=== PATIENT | male | born 1960 | race Caucasian/White ===

== ENCOUNTER 2021-12-08 22:44 | Inpatient (IN) | payer MEDICARE, OTHER ==
[2021-12-08] MEDS ORDERED: NITROGLYCERIN SL TABS 0.4 MG TAB SUBLINGUAL PRN (22:50)
[2021-12-08] MEDS ORDERED: HEPARIN SODIUM 1,000 UN/ML (10ML VL) ONE (22:53)
--- NOTE | 2021-12-08 22:54 | ED ---
Chest Pain HPI - General Stated Complaint: Chest Pain Time Seen by Provider: 12/08/21 22:47 Source: RN notes reviewed, old records reviewed Mode of arrival: EMS Limitations: no limitations - History of Present Illness Initial Comments: This is a 61-year-old male DF for evaluation weeks of this patient in transfer from outside facility for ST elevated [place] and need for cardiology evaluation. Patient presents today for evaluation of persistent chest pain, significant shortness of breath mild diaphoresis. No recent travel history sick contacts. No other complaints MD Complaint: chest pain -: hour(s) Onset: during rest, during exertion Pain Location: left chest Pain Radiation: back Severity: moderate Severity scale (1-10): 7 Quality: tightness, heaviness Consistency: constant Improves With: nothing Worsens With: nothing Anginal Symptoms: diaphoresis, sense of impending doom Other Symptoms: palpitations Treatments Prior to Arrival: aspirin, nitroglycerin, oxygen Review of Systems ROS Statement: Those systems with pertinent positive or pertinent negative responses have been documented in the HPI. ROS Other: All systems not noted in ROS Statement are negative. General Exam General appearance: alert, in no apparent distress, anxious Head exam: Present: atraumatic, normocephalic, normal inspection Eye exam: Present: normal appearance, PERRL, EOMI. Absent: scleral icterus, conjunctival injection, periorbital swelling ENT exam: Present: normal exam, mucous membranes moist Neck exam: Present: normal inspection. Absent: tenderness, meningismus, lymphadenopathy Respiratory exam: Present: normal lung sounds bilaterally. Absent: respiratory distress, wheezes, rales, rhonchi, stridor Cardiovascular Exam: Present: regular rate, normal rhythm, normal heart sounds. Absent: systolic murmur, diastolic murmur, rubs, gallop, clicks GI/Abdominal exam: Present: soft, normal bowel sounds. Absent: distended, tenderness, guarding, rebound, rigid Extremities exam: Present: normal inspection, full ROM, normal capillary refill. Absent: tenderness, pedal edema, joint swelling, calf tenderness Back exam: Present: normal inspection Neurological exam: Present: alert, oriented X3, CN II-XII intact Psychiatric exam: Present: normal affect, normal mood Skin exam: Present: warm, dry, intact, normal color. Absent: rash Course - Reevaluation(s) Reevaluation #1: 12/08/21 22:53 Medical record is reviewed Reevaluation #2: 12/08/21 22:53 Transferring paperwork is reviewed Reevaluation #3: 12/08/21 22:53 Patient does still of chest pain Chest Pain MDM - MDM 61 male DF for evaluation accepted in transfer for ST elevated [place]. Patient transferred to chemical laboratory technician upon arrival in emergency department Disposition Clinical Impression: STEMI (ST elevation myocardial infarction) Disposition: ADMITTED IP TO THIS HOSP Condition: Serious Is patient prescribed a controlled substance at d/c from ED?: No Referrals: None,Stated [Primary Care Provider] - 1-2 days Time of Disposition: 23:00
[2021-12-08] MEDS ORDERED: HEPARIN SOD,PORK IN 0.45% NACL 25,000 UNIT in 0.45% NACL 1 250ML.BAG IV SCH (23:00)
[2021-12-08] MEDS ORDERED: IV FLUID CONTINUATION 1,000 ML IV ONE (23:00)
[2021-12-08] MEDS ORDERED: LIDOCAINE 1% INJ 10MG/ML (30 ML VIAL-PF) SQ ONE ×2 (23:05→23:10)
[2021-12-08] MEDS ORDERED: VERAPAMIL SYRINGE (5 MG/10 ML) INTRAARTER ONE ×2 (23:07→23:10)
[2021-12-08] MEDS ORDERED: fentaNYL (PF) 50 MCG/ML 2 ML AMP ONE (23:08)
[2021-12-08] MEDS: MIDAZOLAM 2 MG/2 ML VIAL IV ONE ×2 (23:11→23:13)
[2021-12-08] MEDS ORDERED: fentaNYL (PF) 50 MCG/ML 2 ML AMP IV ONE (23:12)
[2021-12-08] MEDS: HEPARIN SODIUM 1,000 UN/ML (10ML VL) IV ONE ×2 (23:12→23:49)
[2021-12-08] MEDS ORDERED: PRASUGREL 10 MG TAB ONE (23:33)
[2021-12-08] MEDS ORDERED: PRASUGREL 10 MG TAB PO ONE (23:33)
[2021-12-08] MEDS ORDERED: HYDROmorphone 0.5 MG/0.5 ML SYRINGE IVP ONE (23:41)
[2021-12-08] MEDS ORDERED: FUROSEMIDE 10 MG/ML 4 ML VIAL IV ONE (23:43)
[2021-12-08] MEDS ORDERED: IOPAMIDOL-370 100ML BTL INJ ONE ×2 (23:43→23:50)
[2021-12-08] MEDS ORDERED: FUROSEMIDE 10 MG/ML 4 ML VIAL ONE (23:43)
[2021-12-08] MEDS ORDERED: SODIUM CHLORIDE 0.9% 1,000 ML in EMPTY BAG 1 BAG IV SCH (23:45)
[2021-12-08] MEDS ORDERED: ATROPINE SULFATE 0.1 MG/ML 10ML SYRINGE IV PRN (23:55)
[2021-12-08] MEDS ORDERED: MAG HYDROX/AL HYDROX/SIMETH 30 ML CUP PO PRN (23:55)
[2021-12-08] MEDS ORDERED: RX INFO: IV CONTRAST WAS GIVEN 1 EACH MISC MISCELLANE PRN (23:55)
[2021-12-08] MEDS ORDERED: ZOLPIDEM 5 MG TAB PO PRN (23:55)
--- NOTE | 2021-12-09 00:05 | P.PCN ---
Date of Procedure: 12/08/21 Operative Findings: CARDIAC CATHETERIZATION AND PERCUTANEOUS CORONARY INTERVENTION PERFORMING PHYSICIAN: Terrance Kurtz MD, VI PROCEDURE PERFORMED: 1. Selective right and left coronary angiogram 2. Left heart catheterization 3. Successful stenting of proximal LAD using 3.5 x 15 mm Xience SHIVAM which with an excellent angiographic results INDICATION: This is a 61-year-old gentleman with CAD and prior stenting of the LCx, was performed at [facility], currently doesn't follow with any industrial automation engineer, presented to [facility] complaining of chest discomfort. He continues to have ongoing chest discomfort. The EKG showed wide complex QRS. In the light of ongoing chest discomfort, a heart catheterization was advised COMPLICATION: None APPROACH: Right radial artery LEVEL OF SEDATION: Moderate with the sedation time off 47 minutes PROCEDURE DESCRIPTION: After obtaining an informed consent the patient was brought to the cardiac golf course laborer. The right radial artery was cannulated using micropuncture technique, the micropuncture wire passed easily then I placed a 6-[place] sheath. I gave the patient 2 mg of verapamil and her arterial and 8000 use of heparin intravenous. Subsequently selective right and left coronary angiogram performed using JR4 and JL 4 catheters. After that left heart catheterization was performed using 6- [place] pigtail catheter. After that I did intervene on the LAD. The procedure was completed without any complication SELECTIVE CORONARY ANGIOGRAM: The right coronary artery: Large-caliber vessel and a dominant vessel. The RCA has mild disease in the proximal portion. In the mid and distal portion appears to be angiographically normal and bifurcates into PDA and PLV branches both appeared to be angiographically normal Left main: Is not exists. The LAD and the circumflex has a separate ostium from the aorta The left circumflex: Large-caliber vessel. The proximal LCx gives rise into a large OM branch which appears to be stented and the stent is patent. The left anterior descending artery: The proximal LAD by the bifurcation of the large diagonal branch has a lesion appeared to be calcified in the range of 80%. The mid LAD has mild disease only. The LAD distally appears to be angiographically normal HEMODYNAMICS: The LVEDP was 16 mmHg was no significant gradient across aortic valve PCI OF THE LAD: Anticoagulation was initiated using heparin. Continuous ECG monitoring was performed. Subsequently I did engage the LAD using a JL 3.5 guiding catheter. I did where the LAD using a run-through wire. PTCA ballooning was performed using 3.0 x 12 mm balloon. After that I deployed 3.5 x 15 mm stent where the stent was positioned under fluoroscopy guidance and deployed under its nominal pressure. Postdilatation was performed using 3.5 mm NC balloon which was inflated under 20 alia for 20 seconds. The following angiogram showed good angiographic results and the procedure was completed without any complication CONCLUSION: #1 critical disease involving the proximal LAD. Successful stenting of the LAD was performed with a good angiographic results #2 patent stent in the first obtuse marginal branch of the left circumflex #3 mild disease involving the right coronary artery POSTPROCEDURE MANAGEMENT: #1 dual antiplatelet therapy using aspirin and Effient for 12 month #2 aggressive cholesterol control #3 follow-up with the patient
--- NOTE | 2021-12-09 00:09 | P.CRDCN ---
History of Present Illness Consult date: 12/09/21 Chief complaint: Chest discomfort History of present illness: This is a 61-year-old gentleman with CAD and prior stenting of the left circumflex was performed at [facility], the patient follows with a cultural anthropology professor over there but has not seen him in years, diabetes, hypertension, and dyslipidemia. This patient presented to the emergency department at [facility] complaining of chest discomfort. He was in his usual state of health earlier today when he started experiencing discomfort in the middle of the chest, as a pressure on the chest, with radiation to the neck as well as to the jaw. The chest discomfort was associated with shortness of breath as well as with sweating. No dizziness or lightheadedness and no presyncope or syncope. No feeling of heart racing or fluttering. [facility] and showed sinus rhythm with sinus tachycardia and wide QRS does not seems to be typical for any LBBB be or RBBB. Because the patient continues to be having ongoing chest discomfort an emergent heart catheterization was advised. Subsequently the patient was transferred to [facility] where he underwent an emergent heart catheterization and was found to have critical disease involving the proximal LAD by the bifurcation of the large diagonal branch. He underwent successful stenting of the LAD with a good angiographic results. The left sided filling pressure was slightly elevated at 16 mmHg. The procedure was performed from the right radial approach Medications and Allergies Allergies Allergy/AdvReac Type Severity Reaction Status Date / Time morphine AdvReac Unknown Verified 12/08/21 23:14 Physical Exam Vitals: Intake and Output 12/08/21 12/08/21 12/09/21 14:59 22:59 06:59 Intake Total 400 Balance 400 Intake: IV 400 Other: Weight 102.965 kg - Constitutional General appearance: no acute distress - Respiratory Respiratory: bilateral: diminished - Cardiovascular Rhythm: regular Heart sounds: normal: S1, S2 Abnormal Heart Sounds: systolic murmur Results Cardiac Enzymes 12/08/21 Range/Units 22:50 Troponin I 0.017 (0.000-0.034) ng/mL Current Medications Generic Name Dose Route Start Last Admin Trade Name Freq PRN Reason Stop Dose Admin Al Hydroxide/Mg Hydroxide 30 ml 12/08/21 23:55 Mag Hydrox/Al Hydrox/Simeth 30 Ml Cup PO Q4HR PRN Heartburn Aspirin 325 mg 12/09/21 09:00 Aspirin 325 Mg Tab PO DAILY [facility] Atorvastatin Calcium 80 mg 12/09/21 09:00 Atorvastatin 80 Mg Tab PO DAILY [facility] Atropine Sulfate 0.5 mg 12/08/21 23:55 Atropine Sulfate 0.1 Mg/Ml 10ml Syringe IV ONCE PRN Symptomatic Bradycardia Heparin Sodium/Sodium Chloride 250 mls @ 9.998 mls/hr 12/08/21 23:00 25,000 unit/ Sodium Chloride IV .Q24H [facility] Protocol 9.71 UNITS/KG/HR Sodium Chloride 1,000 ml/ IV 1,000 mls @ 75 mls/hr 12/08/21 23:45 Solution IV 12/09/21 04:46 .[id number] [facility] Metoprolol Tartrate 25 mg 12/09/21 09:00 Metoprolol Tartrate 25 Mg Tab PO BID [facility] Miscellaneous Information 1 each 12/08/21 23:55 Rx Info: Iv Contrast Was Given 1 Each Mis MISCELLANE 12/10/21 23:55 DAILY PRN Per Protocol Morphine Sulfate 4 mg 12/08/21 22:50 Morphine Sulfate 4 Mg/Ml Syringe IV Q4HR PRN Chest Pain Nitroglycerin 0.4 mg 12/08/21 23:55 Nitroglycerin Sl Tabs 0.4 Mg Tab SUBLINGUAL Q5M PRN Chest Pain Prasugrel 10 mg 12/09/21 09:00 Prasugrel 10 Mg Tab PO DAILY [facility] Protocol Zolpidem Tartrate 5 mg 12/08/21 23:55 Zolpidem 5 Mg Tab PO HS PRN Insomnia Intake and Output 12/08/21 12/08/21 12/09/21 14:59 22:59 06:59 Intake Total 400 Balance 400 Intake: IV 400 Other: Weight 102.965 kg Patient Weight 12/09/21 06:59 Weight 102.965 kg Assessment and Plan Assessment: Assessment #1 unstable angina #2 severe CAD and status post PCI of the LAD #3 hypertension #4 dyslipidemia #5 diabetes Plan Continue the current medical regimen Anti-ischemic medication High intensity statin An echo. He does have a systolic murmur on examination and also to evaluate for any wall motion abnormalities Follow-up with the patient
[2021-12-09 00:15] LABS: Glucose,Whole Blood 408 mg/dL (70-110)
[2021-12-09 00:40] LABS: ALT 15 U/L (4-49); AST 23 U/L (17-59); African American GFR (CKD) >90 (>60 ml/min/1.73 sqM); Albumin 3.5 g/dL (3.5-5.0); Alkaline Phosphatase 99 U/L (38-126); Anion Gap 12 mmol/L; Blood Urea Nitrogen 20 mg/dL (9-20); Calcium 8.4 mg/dL (8.4-10.2); Carbon Dioxide 19 mmol/L (22-30); Chloride 100 mmol/L (98-107); Glucose 391 mg/dL (74-99); Non-African American GFR(CKD) >90 (>60 ml/min/1.73 sqM); Sodium 131 mmol/L (137-145); Total Bilirubin 0.6 mg/dL (0.2-1.3); Total Protein 5.5 g/dL (6.3-8.2)
[2021-12-09] MEDS: MORPHINE SULFATE 4 MG/ML SYRINGE IV PRN ×2 (00:59→20:08)
[2021-12-09 06:34] LABS: Glucose,Whole Blood 353 mg/dL (70-110)
[2021-12-09 07:50] LABS: Basophils % (A) 0 %; Eosinophils # (A) 0.2 k/uL (0-0.7); Eosinophils % (A) 3 %; HCT 40.5 % (39.0-53.0); HGB 13.7 gm/dL (13.0-17.5); Lymphocytes # (A) 2.3 k/uL (1.0-4.8); Lymphocytes % (A) 31 %; MCH 30.2 pg (25.0-35.0); MCHC 33.7 g/dL (31.0-37.0); MCV 89.4 fL (80.0-100.0); Mean Platelet Volume 9.2; Monocytes # (A) 0.3 k/uL (0-1.0); Monocytes % (A) 4 %; Neutrophils # (A) 4.5 k/uL (1.3-7.7); Neutrophils % (A) 60 %; Platelet Count 144 k/uL (150-450); RBC 4.53 m/uL (4.30-5.90); RDW 13.4 % (11.5-15.5); WBC 7.4 k/uL (3.8-10.6)
[2021-12-09 08:09] LABS: African American GFR (CKD) >90 (>60 ml/min/1.73 sqM); Anion Gap 10 mmol/L; Blood Urea Nitrogen 18 mg/dL (9-20); Calcium 8.3 mg/dL (8.4-10.2); Carbon Dioxide 22 mmol/L (22-30); Chloride 102 mmol/L (98-107); Glucose 346 mg/dL (74-99); Non-African American GFR(CKD) >90 (>60 ml/min/1.73 sqM); Potassium 3.9 mmol/L (3.5-5.1); Sodium 134 mmol/L (137-145)
[2021-12-09] MEDS: ASPIRIN 325 MG TAB PO SCH (08:46)
[2021-12-09] MEDS: PRASUGREL 10 MG TAB PO SCH (08:46)
[2021-12-09] MEDS: ATORVASTATIN 80 MG TAB PO SCH (08:46)
[2021-12-09] MEDS ORDERED: METOPROLOL TARTRATE 25 MG TAB PO SCH (09:00)
[2021-12-09] MEDS ORDERED: DEXTROSE 50% SYRINGE 50 ML IVP PRN ×2 (09:35)
[2021-12-09] MEDS: INSULIN DETEMIR (LEVEMIR) 100 UNIT/ML SYR SQ SCH (10:14)
[2021-12-09] MEDS: NITROGLYCERIN OINT 1 INCH/GM PACKET TOPICAL SCH ×3 (10:46→22:43)
[2021-12-09] MEDS: lisinopriL 10 MG TAB PO SCH (10:46)
[2021-12-09 11:04] LABS: Glucose,Whole Blood 336 mg/dL (70-110)
[2021-12-09 11:11] LABS: Chol/HDL Ratio 3.54 Ratio; LDL Cholesterol,Calculated 97.8 mg/dL (0.0-131.0)
--- NOTE | 2021-12-09 11:30 | CA ---
Transthoracic Echo Report Name: Giorgi Hill Age: 61 Gender: M : 1960 Exam Date: 12/09/2021 09:32 Exam Location: [place] Echo Ht (in): 72 Wt (lb): 232 Ordering Physician: Terrance Kurtz MD ([id number]) Attending/Referring Phys: Youth Officer Emily Dailey, AL[place] Procedure CPT: Indications: ACS Cardiac Hx: Technical Quality: Contrast 1: Total Dose (mL): Contrast 2: Total Dose (mL): MEASUREMENTS (Male / Female) Normal Values 2D ECHO LV Diastolic Diameter PLAX 4.9 cm 4.2 - 5.9 / 3.9 - 5.3 cm LV Systolic Diameter PLAX 4.5 cm IVS Diastolic Thickness 1.3 cm 0.6 - 1.0 / 0.6 - 0.9 cm LVPW Diastolic Thickness 1.3 cm 0.6 - 1.0 / 0.6 - 0.9 cm LV Relative Wall Thickness 0.5 LA Systolic Diameter LX 4.0 cm 3.0 - 4.0 / 2.7 - 3.8 cm LA Volume 109.8 cm??? 18 - 58 / 22 - 52 cm??? M-MODE Aortic Root Diameter MM 3.3 cm LA Systolic Diameter MM 2.7 cm LA Ao Ratio MM 0.8 MV E Point Septal Separation 2.1 cm AV Cusp Separation MM 1.9 cm DOPPLER AV Peak Velocity 165.2 cm/s AV Peak Gradient 10.9 mmHg MV Area PHT 3.7 cm??? Mitral E Point Velocity 104.7 cm/s Mitral A Point Velocity 73.3 cm/s Mitral E to A Ratio 1.4 MV Deceleration Time 206.1 ms MV E' Velocity 4.2 cm/s Mitral E to MV E' Ratio 25.2 FINDINGS Left Ventricle Left ventricular ejection fraction is estimated at 20-25 %. Global left ventricular hypokinesis. Right Ventricle Normal right ventricular size. Right Atrium Normal right atrial size. Left Atrium Severely increased left atrial volume. Mildly increased left atrial area. Mitral Valve Structurally normal mitral valve. Mild mitral regurgitation. Aortic Valve Trileaflet aortic valve. Aortic valve sclerosis. Tricuspid Valve Structurally normal tricuspid valve. Mild tricuspid regurgitation. Pulmonic Valve Structurally normal pulmonic valve. Pericardium Normal pericardium. Aorta Normal size aortic root and proximal ascending aorta. CONCLUSIONS Left ventricular ejection fraction 20-25% with global hypokinesis Mild left atrial dilation Mild mitral regurgitation Mild tricuspid regurgitation Previewed by: Dr. Scout Paul DO (Electronically Signed) Final Date: 09 December 2021 11:30
--- NOTE | 2021-12-09 12:02 | P.PN ---
Subjective Progress Note Date: 12/09/21 The patient is a 61-year-old male who is currently admitted to the hospital after suffering an anterior wall myocardial infarction. He underwent coronary angiogram with Dr. Alvarez, where he was found to have a 90% stenosis of his proximal LAD, which was subsequently stented. Echocardiogram has revealed se haylie LV dysfunction with EF at 20-25% The patient was interviewed and examined resting comfortably in bed. He states he has had several episodes of angina since his intervention this morning. He states it is not as severe as his initial presentation, but is chest pressure. GENERAL: Well-appearing, well-nourished and in no acute distress. NECK: Supple without JVD or thyromegaly. LUNGS: Breath sounds clear to auscultation bilaterally. Respiration equal and unlabored. No wheezes, rales or rhonchi. HEART: Regular rate and rhythm without murmurs, rubs or gallops. S1 and S2 heard. EXTREMITIES: Normal range of motion, no edema. No clubbing or cyanosis. Peripheral pulses intact and strong. +2 pulses and right radial site. VITALS: Blood pressure 142/92, pulse 60, respiratory rate 15, SpO2 94% on 3 L nasal cannula TELEMETRY: Sinus rhythm overnight LABS: WBC 7.4, hemoglobin 13.7, hematocrit 40.5, platelet 144, sodium 134, potassium 3.9, BUN 18, creatinine 0.70, triglycerides 160, LDL 97, HDL 51 IMPRESSION: Unstable angina, anterior wall myocardial infarction Status post stenting of the LAD Ischemic cardiomyopathy, EF 20-25% History diabetes mellitus, poorly controlled History of hypertension History of dyslipidemia PLAN: Start Nitro-Bid ointment for angina Start lisinopril for hypertension as he is also diabetic Discontinue metoprolol and start carvedilol Awaiting hemoglobin A1c Consider adding Aldactone tomorrow Patient may be transferred to [facility]. Further recommendations to the clinical course I am dictating on behalf of Dr Rehan Barreto's history/physical and assessment/ plan. Objective - Vital Signs Vital signs: Vital Signs Temp 97.6 F 12/09/21 08:00 Pulse 60 12/09/21 11:00 Resp 15 12/09/21 11:00 BP 142/92 12/09/21 11:00 Pulse Ox 94 L 12/09/21 11:00 FiO2 50 12/09/21 04:23 Intake & Output 12/08/21 12/09/21 12/09/21 18:59 06:59 18:59 Intake Total 1000 480 Output Total 1500 600 Balance -500 -120 Weight 105.3 kg Intake: IV 400 Intake, IV Titration 600 Amount Sodium Chloride 0.9% 1, 600 000 ml In Empty Bag 1 bag @ 75 mls/hr IV .[id number] [facility] Rx#:[id number] Oral 480 Output: Urine 1500 600 Other: Voiding Method Urinal - Labs CBC & Chem 7: 12/09/21 07:19 12/09/21 07:19 Labs: Abnormal Lab Results - Last 24 Hours (Table) 12/08/21 12/09/21 12/09/21 Range/Units 23:45 00:13 06:33 Plt Count (150-450) k/uL Sodium 131 L (137-145) mmol/L Carbon Dioxide 19 L (22-30) mmol/L Glucose 391 H (74-99) mg/dL POC Glucose (mg/dL) 408 H 353 H (70-110) mg/dL Calcium (8.4-10.2) mg/dL Total Protein 5.5 L (6.3-8.2) g/dL Triglycerides (0.00-149.00) mg/dL 12/09/21 12/09/21 12/09/21 Range/Units 07:19 07:19 07:19 Plt Count 144 L (150-450) k/uL Sodium 134 L (137-145) mmol/L Carbon Dioxide (22-30) mmol/L Glucose 346 H (74-99) mg/dL POC Glucose (mg/dL) (70-110) mg/dL Calcium 8.3 L (8.4-10.2) mg/dL Total Protein (6.3-8.2) g/dL Triglycerides 160.00 H (0.00-149.00) mg/dL 12/09/21 Range/Units 11:02 Plt Count (150-450) k/uL Sodium (137-145) mmol/L Carbon Dioxide (22-30) mmol/L Glucose (74-99) mg/dL POC Glucose (mg/dL) 336 H (70-110) mg/dL Calcium (8.4-10.2) mg/dL Total Protein (6.3-8.2) g/dL Triglycerides (0.00-149.00) mg/dL
[2021-12-09] MEDS: INSULIN ASPART (NovoLOG) 100 UNIT/ML VIAL SQ SCH ×5 (12:11→20:06)
--- NOTE | 2021-12-09 13:59 | P.HPIM ---
History of Present Illness H&P Date: 12/09/21 This is a 61 year old male with medical history significant for coronary artery disease significant for coronary artery disease with prior stenting to the left circumflex, diabetes mellitus, hypertension, dyslipidemia. Former smoker, occasional alcohol use socially. 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 Patient was drumming when he experienced acute onset of chest pain in the middle of his chest, states it felt like an elephant was sitting on his chest. He had radiation to his neck jaw and left arm. He had associated nausea, shortness of breath, and diaphoresis. He was brought to the emergency room at [facility]. There was concern for ST elevation myocardial infarction, and ongoing chest pain. Patient was transferred to [facility] and was taken for coronary angiography. Patient underwent stenting of the proximal LAD and was transferred to intensive care unit for close monitoring. Patient states the pain felt like his previous [place] which was about 20 years ago and his metal furnace operator was out of covonent, states he has not followed up with a metal furnace operator in years. States Dr. Rowell his PCP manages his diabetes and states his blood sugars have been in the 300s for a long time. He feels hypoglycemic when his blood sugar hits 200s. He is open to seeing endocrine outpatient. States that he does not tolerate oral hypoglycemic medications and that metformin causes pancreatitis. He is maintained currently on lantus and ozempic. Patient would also like to see a vascular doctor regarding varicose legs in his right leg outpatient as well. EKG performed on admission showing sinus rhythm/tachycardia with wide QRS. Patient did have low sodium of 131 on admission and has improved up to 134 with hydration. Glucose in the 300s. Patient has been started on aspirin and effient for dual antiplatelet therapy. Echocardiogram showing an EF of 20 to 25%, global left ventricular hypokinesis, mild MR, mild left atrial dilation, mild TR. Patient is afebrile, heart rate 70s normal sinus rhythm, blood pressure 133/78. On room air. Currently reporting ongoing chest pain 7/10 and feels like pressure in middle of chest. REVIEW OF SYSTEMS: CONSTITUTIONAL: No fever, no malaise, no fatigue. HEENT: No recent visual problems or hearing problems. Denied any sore throat. CARDIOVASCULAR: Reports chest pain, orthopnea, PND, no palpitations, no syncope. PULMONARY: No shortness of breath, no cough, no hemoptysis. GASTROINTESTINAL: No diarrhea, no nausea, no vomiting, no abdominal pain. NEUROLOGICAL: No headaches, no weakness, no numbness. HEMATOLOGICAL: Denies any bleeding or petechiae. GENITOURINARY: Denies any burning micturition, frequency, or urgency. MUSCULOSKELETAL/RHEUMATOLOGICAL: Denies any joint pain, swelling, or any muscle pain. ENDOCRINE: Denies any polyuria or polydipsia. The rest of the 14-point review of systems is negative. PHYSICAL EXAMINATION: GENERAL: The patient is alert and oriented x3, not in any acute distress. Well developed, well nourished. HEENT: Pupils are round and equally reacting to light. EOMI. No scleral icterus. No conjunctival pallor. Normocephalic, atraumatic. No pharyngeal erythema. No thyromegaly. CARDIOVASCULAR: S1 and S2 present. Systolic Murmur present PULMONARY: Chest is clear to auscultation, no wheezing or crackles. ABDOMEN: Soft, nontender, nondistended, normoactive bowel sounds. No palpable organomegaly. Large Round Obese abdomen. MUSCULOSKELETAL: No joint swelling or deformity. EXTREMITIES: No cyanosis, clubbing, or pedal edema. Patient does have prominent veins in right lower extremity, right radial site bruise. NEUROLOGICAL: Gross neurological examination did not reveal any focal deficits. SKIN: No rashes. 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 Dr. Dallas MD I have performed a history and physical examination and medical decision making of this patient, discussed the same with the dictator, and agree with the dictators assessment and plan as written, documented as a scribe. Based on total visit time, I have performed more than 50% of this visit. Past Medical History Past Medical History: Coronary Artery Disease (CAD), Chest Pain / Angina, Diabetes Mellitus, Eye Disorder, Sleep Apnea/CPAP/BIPAP Additional Past Medical History / Comment(s): Myopia of right eye. Pt is a diabetic and states he feels symptoms of hypoglycemia when his sugar gets close to 200. History of Any Multi-Drug Resistant Organisms: None Reported Past Surgical History: Back Surgery, Cholecystectomy, Heart Catheterization, Hea rt Catheterization With Stent, Joint Replacement, Orthopedic Surgery Additional Past Surgical History / Comment(s): Cardiac stents x 4. L4-L5 back hardware. Left hip replacement. Past Anesthesia/Blood Transfusion Reactions: No Reported Reaction Additional Past Anesthesia/Blood Transfusion Reaction / Comment(s): Pt has never had a blood transfusion. Date of Last Stent Placement:: Past Psychological History: No Psychological Hx Reported Smoking Status: Former smoker Past Alcohol Use History: Occasional Additional Drug Use History / Comment(s): Pt states he is a social drinker, but not an every day drinker. Medications and Allergies Home Medications Medication Instructions Recorded Confirmed Type Insulin Glargine,Hum.rec.anlog 28 units SQ DAILY 12/09/21 12/09/21 History [Lantus Solostar Pen] Allergies Allergy/AdvReac Type Severity Reaction Status Date / Time pantoprazole [From Protonix] Allergy Rash/Hives Verified 12/09/21 10:19 tetracycline Allergy Rash/Hives Verified 12/09/21 10:19 Iodinated Contrast Media AdvReac MORALES/chest Verified 12/09/21 10:19 pain Physical Exam Vitals: Vital Signs Temp Pulse Pulse Resp BP Pulse Ox FiO2 12/09/21 07:38 100 12/09/21 07:00 64 15 130/82 96 12/09/21 06:30 64 12 129/80 96 12/09/21 06:00 68 17 141/87 97 12/09/21 05:30 65 17 132/94 94 L 12/09/21 05:00 64 16 138/83 95 12/09/21 04:30 70 14 133/85 93 L 12/09/21 04:23 50 12/09/21 04:00 97.8 F 70 72 17 130/84 95 12/09/21 03:30 68 16 120/78 94 L 12/09/21 03:00 69 18 115/67 96 12/09/21 02:30 67 17 121/73 97 12/09/21 02:00 70 20 131/88 97 12/09/21 01:30 73 17 126/70 96 12/09/21 01:20 75 21 126/70 96 12/09/21 01:10 73 36 H 145/90 95 12/09/21 01:00 87 27 H 138/112 93 L 12/09/21 00:50 13 138/112 91 L 12/09/21 00:40 77 19 133/78 91 L 50 12/09/21 00:30 13 149/86 92 L 50 12/09/21 00:20 19 92 L 12/09/21 00:15 97.6 F 75 21 12/09/21 00:00 77 19 Intake and Output 12/08/21 12/09/21 12/09/21 22:59 06:59 14:59 Intake Total 1000 Output Total 1500 Balance -500 Intake: IV 400 Intake, IV Titration 600 Amount Sodium Chloride 0.9% 1, 600 000 ml In Empty Bag 1 bag @ 75 mls/hr IV .[id number] [facility] Rx#:[id number] Output: Urine 1500 Other: Voiding Method Urinal Weight 105.3 kg Results CBC & Chem 7: 12/09/21 07:19 12/09/21 07:19 Labs: Abnormal Lab Results - Last 24 Hours (Table) 12/08/21 12/09/21 12/09/21 Range/Units 23:45 00:13 06:33 Plt Count (150-450) k/uL Sodium 131 L (137-145) mmol/L Carbon Dioxide 19 L (22-30) mmol/L Glucose 391 H (74-99) mg/dL POC Glucose (mg/dL) 408 H 353 H (70-110) mg/dL Calcium (8.4-10.2) mg/dL Total Protein 5.5 L (6.3-8.2) g/dL 12/09/21 12/09/21 Range/Units 07:19 07:19 Plt Count 144 L (150-450) k/uL Sodium 134 L (137-145) mmol/L Carbon Dioxide (22-30) mmol/L Glucose 346 H (74-99) mg/dL POC Glucose (mg/dL) (70-110) mg/dL Calcium 8.3 L (8.4-10.2) mg/dL Total Protein (6.3-8.2) g/dL Assessment and Plan Time with Patient: Greater than 30
[2021-12-09 16:28] LABS: Glucose,Whole Blood 87 mg/dL (70-110)
[2021-12-09 17:22] VITALS: BMI 29.7
[2021-12-09] MEDS: carvediloL 3.125 MG TAB PO SCH (17:24)
[2021-12-09 19:46] LABS: Glucose,Whole Blood 359 mg/dL (70-110)
[2021-12-10] MEDS ORDERED: MORPHINE SULFATE 4 MG/ML SYRINGE ONE (02:44)
[2021-12-10 06:51] LABS: Glucose,Whole Blood 137 mg/dL (70-110)
[2021-12-10] MEDS: PRASUGREL 10 MG TAB PO SCH (09:04)
[2021-12-10] MEDS: ATORVASTATIN 80 MG TAB PO SCH (09:04)
[2021-12-10] MEDS: NITROGLYCERIN OINT 1 INCH/GM PACKET TOPICAL SCH (09:04)
[2021-12-10] MEDS: INSULIN DETEMIR (LEVEMIR) 100 UNIT/ML SYR SQ SCH (09:04)
[2021-12-10] MEDS: carvediloL 3.125 MG TAB PO SCH ×2 (09:04→17:21)
[2021-12-10] MEDS: ASPIRIN 325 MG TAB PO SCH (09:04)
[2021-12-10] MEDS: lisinopriL 10 MG TAB PO SCH (09:05)
[2021-12-10] MEDS: INSULIN ASPART (NovoLOG) 100 UNIT/ML VIAL SQ SCH ×7 (09:05→21:20)
--- NOTE | 2021-12-10 10:03 | P.PN ---
Subjective Progress Note Date: 12/10/21 The patient is a 61-year-old male who is currently admitted to the hospital after suffering an anterior wall myocardial infarction. He underwent coronary angiogram with Dr. Alvarez, where he was found to have a 90% stenosis of his proximal LAD, which was subsequently stented. Echocardiogram has revealed se haylie LV dysfunction with EF at 20-25% The patient was interviewed and examined resting comfortably in the recliner chair. He was recently transferred to the stepdown unit. Only one episode of chest discomfort overnight, which was relieved with morphine. No dyspnea orthopnea. No heart racing or fluttering. GENERAL: Well-appearing, well-nourished and in no acute distress. NECK: Supple without JVD or thyromegaly. LUNGS: Breath sounds clear to auscultation bilaterally. Respiration equal and un labored. No wheezes, rales or rhonchi. HEART: Regular rate and rhythm without murmurs, rubs or gallops. S1 and S2 heard. EXTREMITIES: Normal range of motion, no edema. No clubbing or cyanosis. Perip heral pulses intact and strong. +2 pulses and right radial site. VITALS: Blood pressure 139/74, pulse 96, respiratory rate 16, SpO2 97% on room air, temp 97.2F TELEMETRY: Sinus rhythm overnight IMPRESSION: Unstable angina, anterior wall myocardial infarction Status post stenting of the LAD Ischemic cardiomyopathy, EF 20-25% History diabetes mellitus, poorly controlled with A1C of 12 History of hypertension History of dyslipidemia History of obstructive sleep apnea PLAN: Discontinue Nitro-Bid Start spironolactone 25 mg daily Check BMP and mag tomorrow Recommend ambulation No further recommendations from the cardiac standpoint I am dictating on behalf of Dr Rehan Barreto's history/physical and assessment/plan. Objective - Vital Signs Vital signs: Vital Signs Temp 97.2 F L 12/10/21 09:43 Pulse 96 12/10/21 09:43 Resp 16 12/10/21 09:43 BP 139/74 12/10/21 09:43 Pulse Ox 97 12/10/21 09:43 FiO2 50 12/09/21 04:23 Intake & Output 12/09/21 12/10/21 12/10/21 18:59 06:59 18:59 Intake Total 600 850 240 Output Total 1150 1 Balance -550 849 240 Weight 105.3 kg Intake: Oral 600 850 240 Output: Urine 1150 1 Other: Voiding Method Urinal Urinal Urinal # Voids 1 - Labs CBC & Chem 7: 12/09/21 07:19 12/09/21 07:19 Labs: Abnormal Lab Results - Last 24 Hours (Table) 12/09/21 12/09/21 12/09/21 Range/Units 07:19 07:19 11:02 POC Glucose (mg/dL) 336 H (70-110) mg/dL Hemoglobin A1c 12.5 H (0.0-6.0) % Triglycerides 160.00 H (0.00-149.00) mg/dL 12/09/21 12/10/21 Range/Units 19:45 06:50 POC Glucose (mg/dL) 359 H 137 H (70-110) mg/dL Hemoglobin A1c (0.0-6.0) % Triglycerides (0.00-149.00) mg/dL
[2021-12-10 10:13] LABS: Glucose,Whole Blood 271 mg/dL (70-110)
[2021-12-10] MEDS: NITROGLYCERIN SL TABS 0.4 MG TAB SUBLINGUAL PRN ×2 (10:57→11:03)
[2021-12-10] MEDS: MORPHINE SULFATE 4 MG/ML SYRINGE IV PRN ×2 (11:05→21:46)
[2021-12-10] MEDS: SPIRONOLACTONE 25 MG TAB PO SCH (11:25)
[2021-12-10 11:56] LABS: Glucose,Whole Blood 162 mg/dL (70-110)
[2021-12-10 16:46] LABS: Glucose,Whole Blood 160 mg/dL (70-110)
--- NOTE | 2021-12-10 18:54 | P.PN ---
Subjective This is a 61 year old male with medical history significant for coronary artery disease significant for coronary artery disease with prior stenting to the left circumflex, diabetes mellitus, hypertension, dyslipidemia. Former smoker, occasional alcohol use socially. 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 Patient was drumming when he experienced acute onset of chest pain in the middle of his chest, states it felt like an elephant was sitting on his chest. He had radiation to his neck jaw and left arm. He had associated nausea, shortness of breath, and diaphoresis. He was brought to the emergency room at [facility]. There was concern for ST elevation myocardial infarction, and ongoing chest pain. Patient was transferred to [facility] and was taken for coronary angiography. Patient underwent stenting of the proximal LAD and was transferred to intensive care unit for close monitoring. Patient states the pain felt like his previous [place] which was about 20 years ago and his dater assembler was out of covonent, states he has not followed up with a dater assembler in years. States Dr. Rowell his PCP manages his diabetes and states his blood sugars have been in the 300s for a long time. He feels hypoglycemic when his blood sugar hits 200s. He is open to seeing endocrine outpatient. States that he does not tolerate oral hypoglycemic medications and that metformin causes pancreatitis. He is maintained currently on lantus and ozempic. Patient would also like to see a vascular doctor regarding varicose legs in his right leg outpatient as well. EKG performed on admission showing sinus rhythm/tachycardia with wide QRS. Patient did have low sodium of 131 on admission and has improved up to 134 with hydration. Glucose in the 300s. Patient has been started on aspirin and effient for dual antiplatelet therapy. Echocardiogram showing an EF of 20 to 25%, global left ventricular hypokinesis, mild MR, mild left atrial dilation, mild TR. Patient is afebrile, heart rate 70s normal sinus rhythm, blood pressure 133/78. On room air. Currently reporting ongoing chest pain 09/05 and feels like pressure in middle of chest. 12/11/2021 Patient presents with unstable angina and possible myocardial infarction status post PCI to the LAD, with ejection fraction showed 20-25% Patient with mild dyspnea and mild occasional coughing. He is on aspirin and effient From cardiology team repeat labs in the morning, no further cardiac workup We'll check chest x-ray Patient informed both high A1c 12.5%, he says at home he takes only Levemir 28 units, patient informed at NovoLog 11 units with meals and he agrees. Patient states he has a glucometer at home Objective - Vital Signs Vital signs: Vital Signs Temp 97.6 F 12/10/21 12:00 Pulse 66 12/10/21 12:00 Resp 18 12/10/21 12:00 BP 135/83 12/10/21 12:00 Pulse Ox 96 12/10/21 12:00 FiO2 50 12/09/21 04:23 Intake & Output 12/09/21 12/10/21 12/10/21 18:59 06:59 18:59 Intake Total 600 850 240 Output Total 1150 1 Balance -550 849 240 Weight 105.3 kg Intake: Oral 600 850 240 Output: Urine 1150 1 Other: Voiding Method Urinal Urinal Urinal # Voids 1 - Exam GENERAL: The patient is alert and oriented x3, not in any acute distress. Well developed, well nourished. HEENT: Pupils are round and equally reacting to light. EOMI. No scleral icterus. No conjunctival pallor. Normocephalic, atraumatic. No pharyngeal erythema. No thyromegaly. CARDIOVASCULAR: S1 and S2 present. No murmurs, rubs, or gallops. PULMONARY: Chest is clear to auscultation, no wheezing or crackles. ABDOMEN: Soft, nontender, nondistended, normoactive bowel sounds. No palpable organomegaly. MUSCULOSKELETAL: No joint swelling or deformity. EXTREMITIES: No cyanosis, clubbing, or pedal edema. NEUROLOGICAL: Gross neurological examination did not reveal any focal deficits. SKIN: No rashes. no petechiae. 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 7 morning Recommended home health care per discharge GI Prophylaxis DVT Prophylaxis Full Code Possible discharge in 24-48 hours significant improvement
--- NOTE | 2021-12-10 20:06 | XR ---
EXAMINATION TYPE: XR chest 1V DATE OF EXAM: 12/10/2021 COMPARISON: NONE HISTORY: Short of breath TECHNIQUE: FINDINGS: Heart and mediastinum are normal. Lungs are clear. Diaphragm is normal. Bony thorax is inta ct. There are chest leads. IMPRESSION: Normal chest.
[2021-12-10 20:39] LABS: Glucose,Whole Blood 108 mg/dL (70-110)
[2021-12-11] MEDS: carvediloL 3.125 MG TAB PO SCH (07:02)
[2021-12-11 07:18] LABS: Glucose,Whole Blood 175 mg/dL (70-110)
[2021-12-11] MEDS: INSULIN DETEMIR (LEVEMIR) 100 UNIT/ML SYR SQ SCH (08:08)
[2021-12-11] MEDS: SPIRONOLACTONE 25 MG TAB PO SCH (08:09)
[2021-12-11] MEDS: INSULIN ASPART (NovoLOG) 100 UNIT/ML VIAL SQ SCH ×3 (08:09→12:03)
[2021-12-11] MEDS: lisinopriL 10 MG TAB PO SCH (08:10)
[2021-12-11] MEDS: ATORVASTATIN 80 MG TAB PO SCH (08:10)
[2021-12-11] MEDS: PRASUGREL 10 MG TAB PO SCH (08:10)
[2021-12-11] MEDS ORDERED: ASPIRIN 81 MG PO SCH (09:00)
[2021-12-11] MEDS ORDERED: DAPAGLIFLOZIN PROPANEDIOL 10 MG TABLET PO SCH (10:45)
[2021-12-11 11:16] LABS: African American GFR (CKD) >90 (>60 ml/min/1.73 sqM); Anion Gap 9 mmol/L; Blood Urea Nitrogen 18 mg/dL (9-20); Calcium 8.5 mg/dL (8.4-10.2); Carbon Dioxide 24 mmol/L (22-30); Chloride 102 mmol/L (98-107); Glucose 167 mg/dL (74-99); Magnesium 1.8 mg/dL (1.6-2.3); Non-African American GFR(CKD) >90 (>60 ml/min/1.73 sqM); Potassium 4.1 mmol/L (3.5-5.1); Sodium 135 mmol/L (137-145)
[2021-12-11 11:54] VITALS: BP 144/83; PULSE 68; RESP 16; TEMP 97.9
[2021-12-11 12:05] LABS: Glucose,Whole Blood 109 mg/dL (70-110)
--- NOTE | 2021-12-11 12:28 | P.PN ---
Subjective Progress Note Date: 12/11/21 The patient is a 61-year-old male who is currently admitted to the hospital after suffering an anterior wall myocardial infarction. He underwent coronary angiogram with Dr. Alvarez, where he was found to have a 90% stenosis of his proximal LAD, which was subsequently stented. Echocardiogram has revealed se haylie LV dysfunction with EF at 20-25% The patient was interviewed and examined resting comfortably in the recliner chair. He states he did well overnight but became a little dizzy when his blood sugars were in the 120s. No chest pain or chest pressure overnight. No dyspnea orthopnea. No heart racing or fluttering. GENERAL: Well-appearing, well-nourished and in no acute distress. NECK: Supple without JVD or thyromegaly. LUNGS: Breath sounds clear to auscultation bilaterally. Respiration equal and unlabored. No wheezes, rales or rhonchi. HEART: Regular rate and rhythm without murmurs, rubs or gallops. S1 and S2 heard. EXTREMITIES: Normal range of motion, no edema. No clubbing or cyanosis. Peripheral pulses intact and strong. Right radial site healed. VITALS: Blood pressure 134/80, respiratory rate 18, pulse 70, temp 98.6F, SpO2 93% on room air LABS: Sodium 135, potassium 4.1, BUN 18, creatinine 0.77, magnesium 1.8 TELEMETRY: Sinus rhythm overnight IMPRESSION: Unstable angina, anterior wall myocardial infarction Status post stenting of the LAD Ischemic cardiomyopathy, EF 20-25% History diabetes mellitus, poorly controlled with A1C of 12 History of hypertension History of dyslipidemia History of obstructive sleep apnea PLAN: Add Farxiga for cardiomyopathy and diabetes mellitus Maximize lisinopril Patient may be discharged from the cardiac standpoint I am dictating on behalf of Dr Rehan Barreto's history/physical and assessment/plan. Objective - Vital Signs Vital signs: Vital Signs Temp 97.9 F 12/11/21 11:53 Pulse 68 12/11/21 11:53 Resp 16 12/11/21 11:53 BP 144/83 12/11/21 11:53 Pulse Ox 96 12/11/21 11:53 FiO2 50 12/09/21 04:23 Intake & Output 12/10/21 12/11/21 12/11/21 18:59 06:59 18:59 Intake Total 600 360 Balance 600 360 Weight 105.3 kg Intake: Oral 600 360 Other: Voiding Method Toilet Toilet Toilet # Voids 2 2 - Labs CBC & Chem 7: 12/09/21 07:19 12/11/21 10:41 Labs: Abnormal Lab Results - Last 24 Hours (Table) 12/10/21 12/11/21 12/11/21 Range/Units 16:44 07:16 10:41 Sodium 135 L (137-145) mmol/L Glucose 167 H (74-99) mg/dL POC Glucose (mg/dL) 160 H 175 H (70-110) mg/dL
[2021-12-11 12:52] LABS: Glucose,Whole Blood 103 mg/dL (70-110)
--- NOTE | 2021-12-11 22:08 | P.DS ---
Providers Date of admission: 12/08/21 22:52 Attending physician: Krysten Borden Consults: 12/08/21 22:50 Consult Physician Urgent Consulting Provider: Terrance Kurtz Consult Reason/Comments: stemi Do you want consulting provider notified?: Yes 12/08/21 23:55 Consult Physician Routine Consulting Provider: [facility] Consult Reason/Comments: Post Interventional patient Do you want consulting provider notified?: Already Contacted Primary care physician: Stated None Hospital Course: Diagnoses: Unstable angina with possible myocardial infarction status post PCI to LAD Ischemic cardiomyopathy with EF of 20% Hypertension Dyslipidemia Diabetes Mellitus, uncontrolled Sleep apnea 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 Former smoker, occasional alcohol use socially. 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 After the procedure he was feeling well with no chest pain and became asymptomatic. His echocardiogram showing ischemic cardiomyopathy with ejection fraction 20-25%, no overt CHF. He is on aspirin and effient and importance of aggressive therapy explained for him. He denies any other symptoms, no dyspnea, no abdominal symptoms no vomiting or diarrhea or urinary symptoms Patient was cleared for discharge by exchange engineer Problems and management plan were discussed with the patient and he verbalized understanding and acceptance Patient was found stable and can be discharged home however he needs follow-up as an outpatient. Patient was instructed to follow up with PCP Dr. alan resendez within one week and patient agrees Patient was instructed to follow up with exchange engineer Dr. Wiley in 1 week after discharge and he agrees Physical exam Gen: patient is a AAOx3, no distress CVS: S1-S2, RRR, no murmur Lungs: B/L CTA, no wheezing Abdomen: soft, no distention, no tenderness, positive bowel sounds Extremity: no leg edema or induration Time spent more than 35 minutes Patient Condition at Discharge: Serious Plan - Discharge Summary New Discharge Prescriptions: New Aspirin 81 mg PO DAILY #30 tab Nitroglycerin Sl Tabs [Nitrostat] 0.4 mg SUBLINGUAL Q5M PRN #20 tab PRN Reason: Chest Pain Spironolactone [Aldactone] 25 mg PO DAILY #30 tab carvediloL [Coreg] 3.125 mg PO BID-W/MEALS #60 tab Prasugrel [Effient] 10 mg PO DAILY #30 tab Atorvastatin [Lipitor] 80 mg PO DAILY #30 tab INSULIN ASPART (NovoLOG) [NovoLOG (formulary)] 10 unit SQ AC-TID 30 Days #10 ml lisinopriL [Prinivil] 20 mg PO DAILY #90 tablet Dapagliflozin Propanediol [Farxiga] 10 mg PO DAILY #90 tab Continue Insulin Glargine,Hum.rec.anlog [Lantus Solostar Pen] 28 units SQ DAILY Discharge Medication List Insulin Glargine,Hum.rec.anlog [Lantus Solostar Pen] 28 units SQ DAILY 12/09/21 [History] Aspirin 81 mg PO DAILY #30 tab 12/11/21 [Rx] Atorvastatin [Lipitor] 80 mg PO DAILY #30 tab 12/11/21 [Rx] Dapagliflozin Propanediol [Farxiga] 10 mg PO DAILY #90 tab 12/11/21 [Rx] INSULIN ASPART (NovoLOG) [NovoLOG (formulary)] 10 unit SQ AC-TID 30 Days #10 ml 12/11/21 [Rx] Nitroglycerin Sl Tabs [Nitrostat] 0.4 mg SUBLINGUAL Q5M PRN #20 tab 12/11/21 [Rx] Prasugrel [Effient] 10 mg PO DAILY #30 tab 12/11/21 [Rx] Spironolactone [Aldactone] 25 mg PO DAILY #30 tab 12/11/21 [Rx] carvediloL [Coreg] 3.125 mg PO BID-W/MEALS #60 tab 12/11/21 [Rx] lisinopriL [Prinivil] 20 mg PO DAILY #90 tablet 12/11/21 [Rx] Follow up Appointment(s)/Referral(s): Rehan Barreto MD [STAFF PHYSICIAN] - 1 Week ([facility]) Demian Sommers MD [REFERRING] - 1 Week (your primary care physician ) Robin Angelo MD [REFERRING] - 2 Weeks ([facility]) Lory Zuleta MD [STAFF PHYSICIAN] - 2 Weeks ([facility]) Amandeep Montanez MD [STAFF PHYSICIAN] - As Needed Patient Instructions/Handouts: After Radial Heart Catheterization (GEN) Activity/Diet/Wound Care/Special Instructions: Patient is from [facility]. Currently does not have a primary care provider. follow up with your primary care physician demian haji in one week if you do not have PCP , Then call your medical insurance provider to find out a nearby PCP heart healthy diet activity is restricted till you see your doctor we recommend to check your glucose 4 times a day before each meal and at bed time , keep the results in a log book and bring it to your doctor upon your appointment date if your glucose is less than 70 or more than 400 then call 911 and come to emergency room Referred to Dr. 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 Montanez on discharge for varicose veins - Vascular surgeon Discharge Disposition: HOME WITH HOME HEALTH SERVICES
[2021-12-12] MEDS ORDERED: lisinopriL 20 MG TAB PO SCH (09:00)
--- NOTE | 2021-12-14 09:43 | CDI ---
Documentation Clarification Form Date: 12/14/21 From: Jacqueline Mckeon Admit Date: 12/08/2021 10:52:00 PM Patient Name: Giorgi Hill Visit Number: [id number] Discharge Date: 12/11/2021 03:52:00 PM ATTENTION: The Clinical Documentation Specialists (CDI) and [facility] Coding Staff appreciate your assistance in clarifying documentation. Please respond to the clarification below the line at the bottom and electronically sign. The CDI & [facility] Coding staff will review the response and follow-up if needed. Please note: Queries are made part of the Legal Health Record. If you have any questions, please contact the author of this message via ITS. Dr. Shepard E Tori, Acute ST elevation myocardial infarction ([place]) is documented in the ED Note and H&P. Additional clarification regarding the type of [place] or unstable angina is requested. History/Risk Factors: old [place] s/p cardiac stents, CAD, T2DM w hyperglycemia, hypercholesterolemia, HTN Clinical Indicators: This patient presented to the emergency department at [facility] complaining of chest discomfort. He started experiencing discomfort in the middle of the chest, as a pressure on the chest, with radiation to the neck as well as to the jaw. The chest discomfort was associated with shortness of breath as well as with sweating. Troponin: unable to find Troponin I results from transferring hospital EKG Results: Sinus rhythm with sinus tachycardia and wide QRS does not seems to be typical for any LBBB be or RBBB Treatment: Underwent an emergent heart catheterization and was found to have critical disease involving the proximal LAD by the bifurcation of the large diagonal branch. Please clarify the type of [place], if known: [ ] STEMI (type 1) [ ] NSTEMI (type 1) [ ] CAD w unstable angina [ ] Other Condition, please specify CAD w unstable angina MTDD
== END 2021-12-11 15:52 | disposition home or self-care (01) | DRG 247 ==
LOC: EC 22:44 → 2SICU 22:52 → 3SCARD 12-10 09:24
PROVIDERS: ADMIT Hospitalist; ATTEND Hospitalist
PROC: B2111ZZ Fluoroscopy of Multiple Coronary Arteries using Low Osmolar Contrast (ICD-10-PCS; principal; 2021-12-08 22:49)
PROC: 4A023N7 Measurement of Cardiac Sampling and Pressure, Left Heart, Percutaneous Approach (ICD-10-PCS; principal; 2021-12-08 22:49)
PROC: 0270346 Dilation of Coronary Artery, One Artery, Bifurcation, with Drug-eluting Intraluminal Device, Percutaneous Approach (ICD-10-PCS; principal; 2021-12-08 22:49)
DX: I25.110 Atherosclerotic heart disease of native coronary artery with unstable angina pectoris (principal); E11.65 Type 2 diabetes mellitus with hyperglycemia; Z79.4 Long term (current) use of insulin; I25.84 Coronary atherosclerosis due to calcified coronary lesion; I25.5 Ischemic cardiomyopathy; E78.00 Pure hypercholesterolemia, unspecified; I10 Essential (primary) hypertension; I25.2 Old myocardial infarction; H52.11 Myopia, right eye; I83.90 Asymptomatic varicose veins of unspecified lower extremity; G47.30 Sleep apnea, unspecified; E66.9 Obesity, unspecified; Z68.29 Body mass index [BMI] 29.0-29.9, adult; Z95.5 Presence of coronary angioplasty implant and graft; Z87.891 Personal history of nicotine dependence; Z96.642 Presence of left artificial hip joint; Z71.3 Dietary counseling and surveillance; Z88.8 Allergy status to other drugs, medicaments and biological substances; Z88.1 Allergy status to other antibiotic agents; Z91.041 Radiographic dye allergy status
CPT/HCPCS: 36415; 71045; 80048; 80053; 80061; 80320; 83036; 83735; 84484; 85025; 93005; 93306; 93458; 94660; 96361; 96374; 96375; 99285